=== PATIENT | female | born 1960 | race Caucasian/White ===

== ENCOUNTER → 2016-10-09 | Outpatient (CLI) | payer BC ==
[~2016-10-09] MED LIST: ACETAMINOPHEN325 MG PO; BACTRIM DS TABL1 TA1 PO; BIOTIN2500 MCG PO; CIPRO PO; CLARITIN10 MG PO; GINKGO60 MG; GINKGO60 MG PO; IRON1 TAB PO; KROGER PHARMACY; LOMOTIL TABLET1 TAB PO; MACROBID100 M1 PO; MULTI VITAMIN1 EACH; MULTI VITAMIN1 EACH PO; MULTI-VITAMIN1 TAB PO; OSTEO-BI-FLEX PO; POTASSIUM CHLORIDE PO; PREVACID PO; PRILOSEC PO; PRILOSEC20 MG; PROTONIX PO; RHINOCORT AQUA8.6 GM; ULTRAM PO; VIACTIV TA1 TAB.CHE1 PO; ZANAFLEX2 M1 PO; ZOFRAN ODT4 MG DOB
--- NOTE | ~2016-10-09 | CT4 ---
[facility]. [facility] A Service of [facility] & [facility] RADIOLOGY TEXT RESULTS PATIENT: GISEL LANGLEY LOCATION: [facility] : 56 UNIT #: [id number] AGE: [address]: Sheryl Ramirez MD SEX: F ORDER DR: [id number] [address] [address] [id number] O MR#: [id number] Acc #: [id number] NAME: GIESL LANGLEY : 1960 SEX: F STUDY DATE/TIME: 10/09/2016 11:50 UNIT: [facility] ROOM: STUDY DESCRIPTION: CT Abd and Pelv Wo Cont Attending Physician: Sheryl Ramirez M.D. Referring Physician: Sheryl Ramirez M.D. Ordering Physician: Sheryl Ramirez M.D. Primary Care Physician: Sheryl Ramirez M.D. MEDICAL IMAGING REPORT This report is preliminary unless electronic signature is present. EXAM CT of the abdomen and pelvis without contrast media 10/09/2016 HISTORY Left lower quadrant pain and hematuria for 1 week. TECHNIQUE Axial imaging of the abdomen and pelvis was performed without contrast and compared to a contrast-enhanced scan of 07/17/2013. This CT exam was performed with one or more of the following radiation dose reduction techniques: automatic exposure control, adjustment of mA and/or kV according to patient size, and iterative reconstruction. FINDINGS Lung bases are unremarkable. Scans through the liver are normal. Gallbladder is absent. Spleen is normal size. Postop changes are identified in the stomach. Both the right and left kidney are normal. There is no evidence of stone disease. There is diverticulosis but there is no CT evidence of diverticulitis. The uterus is absent. There are no adnexal masses or fluid collections. The bladder is normal. The appendix is normal. The patient has postsurgical changes overlying the right side of the pelvis in the subcutaneous fat and there is a fluid collection within the fat measuring 5.1 x 3.3 cm. Patient gives a history of recent lipoma resection. This probably represents a small seroma or hematoma. CONCLUSION 1. Postop changes of prior cholecystectomy, hysterectomy and apparently gastric bypass. No acute intraabdominal findings. STS. [facility] A Service of [facility] & [facility] RADIOLOGY TEXT RESULTS PATIENT: GISEL LANGLEY LOCATION: [facility] : 56 UNIT #: [id number] AGE: [address]: Sheryl Ramirez MD SEX: F ORDER DR: 2. Diverticulosis without diverticulitis. 3. Collection identified in the subcutaneous fat overlying the right posterior-superior iliac crest measuring 5.1 x 3.3 cm. Presumably this represents the site of prior lipoma resection as detailed in the history and may represent a small postoperative hematoma or seroma. 1. Dictated by... Alvaro Gonzalez M.D. THIS IS AN ELECTRONICALLY VERIFIED REPORT Alvaro Gonzalez M.D. at 10/09/2016 5:02 PM SOUMYA/hansa TD: 10/09/2016 15:26 JOB #: [id number] MEDICAL IMAGING REPORT Page 1 of 1
== END | disposition home or self-care (01) ==
LOC: SCT 11:17
DX: R10.32 Left lower quadrant pain (principal); R31.9 Hematuria, unspecified; R19.7 Diarrhea, unspecified; K57.90 Diverticulosis of intestine, part unspecified, without perforation or abscess without bleeding; Z90.49 Acquired absence of other specified parts of digestive tract; Z90.710 Acquired absence of both cervix and uterus
CPT/HCPCS: 74176

== ENCOUNTER 2016-10-10 20:26 | Emergency (ER) | payer BC | END 2016-10-10 21:24 | disposition home or self-care (01) | LOC: SED 20:26 | DX: Z48.01 Encounter for change or removal of surgical wound dressing (principal); K21.9 Gastro-esophageal reflux disease without esophagitis; Z90.49 Acquired absence of other specified parts of digestive tract; Z79.899 Other long term (current) drug therapy; Z88.1 Allergy status to other antibiotic agents | CPT/HCPCS: 99282 ==

== ENCOUNTER 2016-12-08 11:00 | Emergency (ER) | payer BC ==
--- NOTE | ~2016-12-08 | CR252 ---
[facility]. [facility] A Service of [facility] & [facility] RADIOLOGY TEXT RESULTS PATIENT: GISEL LANGLEY LOCATION: SED : 56 UNIT #: [id number] AGE: [address]: Clara Cesar SEX: F ORDER DR: [id number] [address] [address] [id number] E MR#: [id number] Acc #: [id number] NAME: GISEL LANGLEY : 1960 SEX: F STUDY DATE/TIME: 12/08/2016 11:24 UNIT: SED ROOM: STUDY DESCRIPTION: CR Tibia and Fibula 2 Views Lt Attending Physician: Clara Cesar P.A.-C. Ordering Physician: Clara Cesar P.A.-C. Primary Care Physician: Sheryl Ramirez M.D. MEDICAL IMAGING REPORT This report is preliminary unless electronic signature is present. EXAM Left tibia-fibula, 2 views INDICATIONS Leg pain after falling on Friday. Left leg pain. No comparisons. FINDINGS There is no fracture or malalignment. The soft tissue structures are unremarkable. IMPRESSION Negative. Dictated by... Yobani Castorena M.D. THIS IS AN ELECTRONICALLY VERIFIED REPORT Yobani Castorena M.D. at 12/09/2016 7:27 AM ANABELLE/sarkis TD: 12/08/2016 21:31 JOB #: [id number] MEDICAL IMAGING REPORT Page 1 of 1
== END 2016-12-08 11:45 | disposition home or self-care (01) ==
LOC: SED 11:00
DX: S86.212A Strain of muscle(s) and tendon(s) of anterior muscle group at lower leg level, left leg, initial encounter (principal); Z88.1 Allergy status to other antibiotic agents; Z79.899 Other long term (current) drug therapy; K21.9 Gastro-esophageal reflux disease without esophagitis; W01.0XXA Fall on same level from slipping, tripping and stumbling without subsequent striking against object, initial encounter
CPT/HCPCS: 29530; 73590; 96372; 99283; J1885

== ENCOUNTER 2016-12-18 21:05 | Emergency (ER) | payer BC ==
[~2016-12-18] VITALS: Ht 160 cm; Wt 74.4 kg
--- NOTE | ~2016-12-18 | US85 ---
[facility]. [facility] A Service of [facility] & [facility] RADIOLOGY TEXT RESULTS PATIENT: GISEL LANGLEY LOCATION: SED : 56 UNIT #: [id number] AGE: [address]: Joe Sales MD SEX: F ORDER DR: [id number] [place] [id number] E MR#: [id number] Acc #: [id number] NAME: GISEL LANGLEY. : 1960 SEX: F STUDY DATE/TIME: 12/18/2016 22:05 UNIT: SED ROOM: STUDY DESCRIPTION: [facility] Attending Physician: Joe Sales M.D. Ordering Physician: Joe Sales M.D. Primary Care Physician: Sheryl Ramirez M.D. MEDICAL IMAGING REPORT This report is preliminary unless electronic signature is present. EXAM Venous Doppler ultrasound, left leg, 12/18/2016 HISTORY 56-year-old female in the ED complaining of 2-week history of left leg pain and swelling/edema. This began after a fall at [facility]. TECHNIQUE Venous ultrasound examination of the left lower extremity was performed using grayscale, spectral Doppler and color flow Doppler imaging. FINDINGS The examination is negative. There is no evidence of left lower extremity deep venous thrombus from the groin to the lower calf. Visualized greater saphenous vein is also patent. IMPRESSION Negative examination. No evidence of left lower extremity deep venous thrombosis. Dictated by... Pop Hurtado M.D. THIS IS AN ELECTRONICALLY VERIFIED REPORT Pop Hurtado M.D. at 12/19/2016 9:57 PM Arley TD: 12/19/2016 09:55 JOB #: [id number] MEDICAL IMAGING REPORT Page 1 of 1
== END 2016-12-19 00:22 | disposition home or self-care (01) ==
LOC: SED 21:05 → CED 21:05 → SED 21:38
DX: S90.02XA Contusion of left ankle, initial encounter (principal); Z79.899 Other long term (current) drug therapy; Z88.1 Allergy status to other antibiotic agents; W18.40XA Slipping, tripping and stumbling without falling, unspecified, initial encounter
CPT/HCPCS: 93971; 99283